=== PATIENT | male | born 1970 | race Caucasian/White ===

== ENCOUNTER 2016-12-02 13:56 | Emergency (ER) | payer OTHER ==
--- NOTE | ~2016-12-02 | CR72 ---
[facility] A Service of [facility] RADIOLOGY TEXT RESULTS PATIENT: ROBERT MEDRANO LOCATION: SED : 66 UNIT #: [id number] AGE: [address]: Erica Christensen MD SEX: M ORDER DR: [id number] [place] [id number] E MR#: [id number] Acc #: [id number] NAME: ROBERT MEDRANO : 1970 SEX: M STUDY DATE/TIME: 12/02/2016 15:02 UNIT: SED ROOM: STUDY DESCRIPTION: CR Chest Single View Portable Attending Physician: Erica Christensen M.D. Ordering Physician: Erica Christensen M.D. Primary Care Physician: Primary Care Physician No MEDICAL IMAGING REPORT This report is preliminary unless electronic signature is present. EXAM Portable chest radiograph, 12/02/16 HISTORY Syncope. Chest pain. Hit head syncope last night, right eye, nose right side of head pain, lightheaded 2 to 3 weeks. FINDINGS AP radiograph of the chest is presented. No comparison. Heart and mediastinum normal in size and contour. Lungs are hyperinflated. This may be a reflection of underlying chronic airway disease. Correlate with risk factors. There is no indication of acute pulmonary disease. No pleural effusion or pneumothorax. Superimposed over the right lower lung zone is a 1 cm nodular density. Appearance and location on this single view favors nipple shadow artifact but true pulmonary nodule is not excluded. This is best further evaluated in the absence of prior studies with formal PA and lateral radiographs of the chest with nipple markers in place. If not confirmed to be nipple shadow artifact, then CT examination for characterization of pulmonary nodule would be recommended. No other potential pulmonary nodules. Bony structures unremarkable. Dictated by... Yomi Lee M.D. THIS IS AN ELECTRONICALLY VERIFIED REPORT Yomi Lee M.D. at 12/03/2016 5:58 PM SEB/[place] TD: 12/02/2016 22:11 [facility] Service of [facility] RADIOLOGY TEXT RESULTS PATIENT: ROBERT MEDRANO LOCATION: SED : 66 UNIT #: [id number] AGE: [address]: Erica Christensen MD SEX: M ORDER DR: JOB #: [id number] MEDICAL IMAGING REPORT Page 1 of 1
--- NOTE | ~2016-12-02 | CT101 ---
[facility] A Service of [facility] RADIOLOGY TEXT RESULTS PATIENT: ROBERT MEDRANO LOCATION: SED : 66 UNIT #: [id number] AGE: [address]: Erica Christensen MD SEX: M ORDER DR: [id number] [place] [id number] E MR#: [id number] Acc #: [id number] NAME: ROBERT MEDRANO : 1970 SEX: M STUDY DATE/TIME: 12/02/2016 15:13 UNIT: SED ROOM: STUDY DESCRIPTION: CT Maxillofacial Area Wo Cont Attending Physician: Erica Christensen M.D. Ordering Physician: Erica Christensen M.D. Primary Care Physician: Primary Care Physician No MEDICAL IMAGING REPORT This report is preliminary unless electronic signature is present. EXAM Maxillofacial CT INDICATIONS Pain on the right side of the head, eye and nose after a fall last night at 8:30 p.m. Patient had an episode of syncope. TECHNIQUE Axial CT images were obtained through the facial bones. Coronal reformatted images were obtained, as well. This CT exam was performed with one or more of the following radiation dose reduction techniques: Automatic exposure control, adjustment of mA and/or kV according to patient size, and iterative reconstruction. FINDINGS This patient is noted to have some mild soft tissue swelling overlying the right frontal bone. No underlying calvarial fracture is seen and no facial bone fractures are noted. Patient does have mucosal thickening involving the ethmoid sinuses, and there are mucous retention cysts identified within the maxillary sinuses bilaterally. IMPRESSION 1. No facial bone fractures identified. 2. Mild soft tissue swelling overlying the right frontal bone. 3. Sinus inflammatory changes as noted above. Dictated by... Celina Corey M.D. THIS IS AN ELECTRONICALLY VERIFIED REPORT Celina Corey M.D. at 12/02/2016 10:41 PM [facility] A Service of [facility] RADIOLOGY TEXT RESULTS PATIENT: ROBERT MEDRANO LOCATION: [facility] [place] : [birth year] UNIT #: [id number] AGE: [address]: Erica Christensen MD SEX: M ORDER DR: Alanis TD: 12/02/2016 21:05 JOB #: [id number] MEDICAL IMAGING REPORT Page 1 of 1
--- NOTE | ~2016-12-02 | EKG ---
PATIENT: ROBERT MEDRANO UNIT #: [id number] Ventricular Rate: 79 BPM Atrial Rate: 79 BPM P-R Interval: 184 ms QRS Duration: 102 ms Q-T Interval: 380 ms QTC Calculation(Bezet): 435 ms P [place]: 80 degrees Calculated R [place]: 73 degrees Calculated T [place]: 43 degrees Diagnosis Line: Normal sinus rhythm Diagnosis Line: Normal ECG Diagnosis Line: No previous ECGs available Diagnosis Line: Confirmed by SARA CAMACHO MD ([id number]) on Diagnosis Line: 12/03/2016 2:48:51 PM INTERPRETING MD: DOUG STOKES
--- NOTE | ~2016-12-02 | CT71 ---
[facility] A Service [facility] RADIOLOGY TEXT RESULTS PATIENT: ROBERT MEDRANO LOCATION: SED : 66 UNIT #: [id number] AGE: [address]: Erica Christensen MD SEX: M ORDER DR: [id number] [place] [id number] E MR#: [id number] Acc #: [id number] NAME: ROBERT MEDRANO : 1970 SEX: M STUDY DATE/TIME: 12/02/2016 15:10 UNIT: SED ROOM: STUDY DESCRIPTION: CT Head Wo Contrast Attending Physician: Erica Christensen M.D. Ordering Physician: Erica Christensen M.D. Primary Care Physician: No Primary Care Physician MEDICAL IMAGING REPORT This report is preliminary unless electronic signature is present. EXAM CT scan of the head without contrast. INDICATIONS Lightheadedness for 2-3 weeks. Patient hit the right side of her head last night after an episode of syncope at 8:30 p.m. She reports pain on the right side of her head. TECHNIQUE Axial CT images were obtained from the vertex of the skull through the skull base. No intravenous contrast material was administered. This CT exam was performed with one or more of the following radiation dose reduction techniques: automatic exposure control, adjustment of mA and/or kV according to patient size, and iterative reconstruction. FINDINGS No acute intracranial hemorrhage is identified. The brain parenchyma is normal in attenuation with no focal areas of decreased attenuation seen. Ventricles are normal in size. There is no midline shift or mass effect. The patient is noted to have some mucosal thickening within the ethmoid sinuses. Mastoid air cells appear clear. Mild soft tissue swelling is seen on the right frontal region without underlying calvarial fracture seen. IMPRESSION 1. No acute intracranial process identified. Specifically, there is no evidence of acute hemorrhage, mass lesion or acute infarct. 2. Mild soft tissue swelling within the right frontal region. No underlying fractures seen. Dictated by... [facility] A Service [facility] RADIOLOGY TEXT RESULTS PATIENT: ROBERT MEDRANO LOCATION: [facility] : [birth year] UNIT #: [id number] AGE: [address]: Erica Christensen MD SEX: M ORDER DR: Celina Corey M.D. THIS IS AN ELECTRONICALLY VERIFIED REPORT Celina Corey M.D. at 12/02/2016 10:41 PM AFF/jt TD: 12/02/2016 21:04 JOB #: [id number] MEDICAL IMAGING REPORT Page 1 of 1
--- NOTE | ~2016-12-02 | CR63 ---
[facility] A Service of [facility] RADIOLOGY TEXT RESULTS PATIENT: ROBERT MEDRANO LOCATION: SED : [birth year] UNIT #: [id number] AGE: [address]: Erica Christensen MD SEX: M ORDER DR: [id number] [place] [id number] E MR#: [id number] Acc #: [id number] NAME: ROBERT MEDRANO : 1970 SEX: M STUDY DATE/TIME: 12/02/2016 16:57 UNIT: SED ROOM: STUDY DESCRIPTION: CR Chest 2 View Attending Physician: Erica Christensen M.D. Ordering Physician: Erica Christensen M.D. Primary Care Physician: Primary Care Physician No MEDICAL IMAGING REPORT This report is preliminary unless electronic signature is present. EXAM PA and lateral chest radiograph INDICATION Possible nodule identified on portable chest radiograph performed December 02, 2016. This nodule was located on the right. FINDINGS Nipple markers were placed on the area concern within the right mid lung. These are corresponding to the patient's nipples. No suspicious pulmonary nodules or masses are seen. Heart size is within normal limits. Lungs appear clear. No aggressive osseous abnormalities are seen. IMPRESSION Area of concern within the right hemithorax corresponds to the patient's right nipple. No suspicious pulmonary nodules or masses are seen. Dictated by... Celina Corey M.D. THIS IS AN ELECTRONICALLY VERIFIED REPORT Celina Corey M.D. at 12/03/2016 10:57 AM [place] TD: 12/03/2016 00:43 JOB #: [id number] MEDICAL IMAGING REPORT Page 1 of 1
[2016-12-02] MEDS ORDERED: NO MEDICATIONS (13:58)
[2016-12-02 15:10] LABS: BASOPHIL# 0.1 X10e3 (0-0.3); BASOPHIL% 0.7 % (0-2.5); EOSINOPHIL# 0.1 X10e3 (0-0.7); EOSINOPHIL% 1.4 % (0.0-7.0); HEMATOCRIT 42.5 % (38.0-50.0); HEMOGLOBIN 14.7 gm/dL (13.0-16.0); LYMPHOCYTE# 1.5 X10e3 (1.0-3.5); LYMPHOCYTE% 19.3 % (17.0-45.0); MEAN CELL VOLUME 85.5 FL (83-96); MEAN CORPUSCULAR HEMOGLOBIN 29.5 PG (28-34); MEAN CORPUSCULAR HGB CONC 34.5 g/dL (30-36); MEAN PLATELET VOLUME 10.1 FL (6.5-11.5); MONOCYTE# 0.8 X10e3 (0-1.0); NEUTROPHIL# 5.1 X10e3 (1.5-7.1); NEUTROPHIL% 67.6 % (40-75); PLATELET COUNT 210 X10e3 (140-420); RED BLOOD COUNT 4.97 X10e (3.90-5.60); WHITE BLOOD COUNT 7.6 X10e3 (4.0-10.5)
[2016-12-02 15:17] LABS: DIFF IND NO
[2016-12-02 15:21] LABS: POC - CKMB <1.0 ng/mL (0.0-7.9); POC - TROPONIN <0.05 ng/mL (<=0.05)
[2016-12-02 15:36] LABS: ALBUMIN SERUM 4.2 g/dL (3.5-5.0); BILIRUBIN, DIRECT 0.1 mg/dL (0.0-0.2); BILIRUBIN,INDIRECT 0.7 mg/dL (0.0-0.9); BILIRUBIN,TOTAL 0.8 mg/dL (0.2-2.0); BUN/CREATININE RATIO 16.66; CALCIUM SERUM 8.8 mg/dL (8.4-10.2); CREATININE SERUM 0.9 mg/dL (0.6-1.4); GLOM FILT RATE Estimated 100.6 mL/min (>60); POTASSIUM 3.6 mmol/L (3.5-5.1); PROTEIN TOTAL SERUM 7.4 g/dL (6.0-8.3)
[2016-12-02 15:37] LABS: INR 1.1; PROTHROMBIN TIME (PATIENT) 11.9 SECONDS (9.5-12.4)
[2016-12-02 15:45] LABS: PARTIAL THROMBOPLASTIN TIME 32.3 SECONDS (25.6-38.1)
[2016-12-02 16:10] LABS: URINE SOURCE CLEAN CATCH
[2016-12-02 16:21] LABS: URINE APPEARANCE CLEAR; URINE BILIRUBIN NEG (NEG); URINE BLOOD NEG (NEG); URINE COLOR YELLOW; URINE GLUCOSE NEG (NORM); URINE KETONE NEG (NEG); URINE LEUKOCYTE ESTERASE NEG (NEG); URINE NITRATE NEG (NEG); URINE PROTEIN TRACE (NEG); URINE SPECIFIC GRAVITY >=1.030 (1.003-1.035)
[2016-12-02 16:32] LABS: AMPHETAMINE NEG (NEG); BARBITURATES NEG (NEG); BENZODIAZEPINES NEG (NEG); COCAINE NEG (NEG); MARIJUANA POS (NEG); OPIATES POS (NEG); TRICYCLIC ANTIDEPRESSANTS NEG (NEG); U METHADONE NEG (NEG)
[2016-12-02 16:35] LABS: MICRO INDICATED? YES
[2016-12-02 16:36] LABS: CULTURE INDICATED? YES; URINE BACTERIA 1+ (NEG); URINE RBC 0-2 /[HPF] (0-2); URINE WBC 0-2 /[HPF] (0-5)
[2016-12-02 16:37] LABS: URINE CRYSTALS CALCIUM OXALATE /[HPF]; URINE GRANULAR CAST 0-2 /[HPF]; URINE HYALINE CAST 0-2 /[HPF]; URINE MUCUS PRESENT; URINE SQUAMOUS EPITHELIAL CELL FEW /[HPF]; URINE TRANSITIONAL EPI CELLS FEW /[HPF]; URINE WHITE BLOOD CELL CAST 0-2 /[HPF]
[2016-12-02 16:50] LABS: POC - CKMB 1.3 ng/mL (0.0-7.9)
[2016-12-02 16:51] LABS: POC - TROPONIN <0.05 ng/mL (<=0.05)
== END 2016-12-02 18:23 | disposition home or self-care (01) ==
LOC: SED 13:56
PROVIDERS: Student in an Organized Health Care Education/Training Program
DX: S00.83XA Contusion of other part of head, initial encounter (principal); R55 Syncope and collapse; F15.10 Other stimulant abuse, uncomplicated; X58.XXXA Exposure to other specified factors, initial encounter; Y92.9 Unspecified place or not applicable
CPT/HCPCS: 70450; 70486; 71010; 71020; 80048; 80076; 80307; 81003; 82553; 82947; 84484; 85025; 85379; 85610; 85730; 87086; 93005; 96360; 99284

== ENCOUNTER 2017-03-09 07:27 | Emergency (ER) | payer OTHER ==
[~2017-03-09] VITALS: Ht 182.9 cm; Wt 79.8 kg
[~2017-03-09 07:27] MED LIST: NO MEDICATIONS
[2017-03-09 08:43] LABS: BASOPHIL# 0.1 X10e3 (0-0.3); BASOPHIL% 0.6 % (0-2.5); EOSINOPHIL# 0.2 X10e3 (0-0.7); EOSINOPHIL% 1.8 % (0.0-7.0); HEMATOCRIT 39.8 % (38.0-50.0); HEMOGLOBIN 13.9 gm/dL (13.0-16.0); LYMPHOCYTE# 1.5 X10e3 (1.0-3.5); LYMPHOCYTE% 12.7 % (17.0-45.0); MEAN CELL VOLUME 85.3 FL (83-96); MEAN CORPUSCULAR HEMOGLOBIN 29.7 PG (28-34); MEAN CORPUSCULAR HGB CONC 34.9 g/dL (30-36); MEAN PLATELET VOLUME 10.2 FL (6.5-11.5); MONOCYTE% 8.7 % (3.0-12.0); NEUTROPHIL# 8.8 X10e3 (1.5-7.1); NEUTROPHIL% 76.2 % (40-75); PLATELET COUNT 207 X10e3 (140-420); RED BLOOD COUNT 4.67 X10e (3.90-5.60); WHITE BLOOD COUNT 11.5 X10e3 (4.0-10.5)
[2017-03-09 08:47] LABS: DIFF IND NO
[2017-03-09 08:53] LABS: URINE SOURCE CLEAN CATCH
[2017-03-09 08:57] LABS: URINE APPEARANCE CLEAR; URINE BILIRUBIN NEG (NEG); URINE BLOOD NEG (NEG); URINE COLOR YELLOW; URINE GLUCOSE NEG (NEG); URINE KETONE TRACE (NEG); URINE LEUKOCYTE ESTERASE NEG (NEG); URINE NITRATE NEG (NEG); URINE PH 7.5 (5-8); URINE PROTEIN TRACE (NEG)
[2017-03-09 09:07] LABS: AMPHETAMINE NEG (NEG); BARBITURATES NEG (NEG); BENZODIAZEPINES NEG (NEG); COCAINE POS (NEG); MARIJUANA POS (NEG); OPIATES NEG (NEG); TRICYCLIC ANTIDEPRESSANTS NEG (NEG); U METHADONE NEG (NEG)
[2017-03-09 09:08] LABS: CULTURE INDICATED? NO
[2017-03-09 09:19] LABS: ALBUMIN SERUM 4.2 g/dL (3.5-5.0); ALKALINE PHOSPHATASE 51 U/L (32-92); ALT (SGPT) 18 U/L (10-40); AST (SGOT) 21 U/L (10-42); BLOOD UREA NITROGEN 11 mg/dL (9-23); CALCIUM SERUM 9.2 mg/dL (8.4-10.2); CARBON DIOXIDE 23 mmol/L (22-31); CHLORIDE 108 mmol/L (100-111); GLOM FILT RATE Estimated 88.6 mL/min (>60); GLUCOSE FASTING 103 mg/dL (70-110); POTASSIUM 4.1 mmol/L (3.5-5.1); PROTEIN TOTAL SERUM 7.1 g/dL (6.0-8.3); SODIUM 140 mmol/L (135-145)
[2017-03-09 09:21] LABS: BILIRUBIN,TOTAL <0.1 mg/dL (0.2-2.0)
== END 2017-03-09 10:32 | disposition home or self-care (01) ==
LOC: CED 07:27
PROVIDERS: Physician Assistant Medical
DX: F14.90 Cocaine use, unspecified, uncomplicated (principal); F12.90 Cannabis use, unspecified, uncomplicated
CPT/HCPCS: 36415; 80053; 80307; 81003; 85025; 99285; G0480